=== PATIENT | female | born 1935 | race Hispanic/Latino ===

== ENCOUNTER → 2019-10-12 | Outpatient (CLI) | payer MEDICARE | END | disposition home or self-care (01) | LOC: RAH 10:33 | PROVIDERS: ATTEND Internal Medicine Cardiovascular Disease | DX: G31.89 Other specified degenerative diseases of nervous system (principal); I63.9 Cerebral infarction, unspecified | CPT/HCPCS: 70450 ==

== ENCOUNTER → 2019-10-19 | Outpatient (CLI) | payer MEDICARE | END | disposition home or self-care (01) | LOC: SHCH 09:54 | PROVIDERS: ATTEND Internal Medicine Cardiovascular Disease | DX: I65.23 Occlusion and stenosis of bilateral carotid arteries (principal); I50.30 Unspecified diastolic (congestive) heart failure; I51.7 Cardiomegaly; I67.9 Cerebrovascular disease, unspecified | CPT/HCPCS: 93306; 93880 ==

== ENCOUNTER → 2020-03-02 | Outpatient (CLI) | payer MEDICARE | END | disposition home or self-care (01) | LOC: RAH 09:02 | PROVIDERS: ATTEND Internal Medicine Cardiovascular Disease | DX: I07.1 Rheumatic tricuspid insufficiency (principal); R94.31 Abnormal electrocardiogram [ECG] [EKG] | CPT/HCPCS: 93306; 93356 ==

== ENCOUNTER → 2022-02-11 | Outpatient (CLI) | payer MEDICARE ==
[~2022-02-11] MED LIST: REGADENOSON 0.4 MG/5 ML PF SYG IVP SCH
== END | disposition home or self-care (01) ==
LOC: SHCH 08:32
PROVIDERS: ATTEND Internal Medicine Cardiovascular Disease
DX: I20.9 Angina pectoris, unspecified (principal)
CPT/HCPCS: 78452; 96374; 93017; J2785; A9500 ×2

== ENCOUNTER → 2022-08-02 | Outpatient (CLI) | payer MEDICARE | END | disposition home or self-care (01) | LOC: SHCH 11:13 | PROVIDERS: ATTEND Internal Medicine Cardiovascular Disease | DX: G45.0 Vertebro-basilar artery syndrome (principal) | CPT/HCPCS: 93880 ==

== ENCOUNTER → 2023-07-31 | Outpatient (CLI) | payer MEDICARE | END | disposition home or self-care (01) | LOC: SHCH 09:25 | PROVIDERS: ATTEND Internal Medicine Cardiovascular Disease | DX: I07.1 Rheumatic tricuspid insufficiency (principal); I11.9 Hypertensive heart disease without heart failure; E78.5 Hyperlipidemia, unspecified; R00.0 Tachycardia, unspecified | CPT/HCPCS: 93306 ==